=== PATIENT | male | born 1995 | race Caucasian/White ===

== ENCOUNTER 2020-05-25 11:36 | Emergency (ER) | payer OTHER, SELFPAY ==
[2020-05-25] VITALS (22 sets, daily range): BP systolic 108–136; BP diastolic 61–70; PULSE 54–96; RESP 15–24; TEMP 36.3; O2SAT 97–100
--- NOTE | ~2020-05-25 | XR_ITS ---
XR chest 1V portable DATE: 05/25/2020 11:57 INDICATION: Syncope TECHNIQUE: Portable upright AP views on 05/17/2020 1157 hours COMPARISON: None FINDINGS: Normal heart size. No hilar or mediastinal enlargement. The lungs are clear of infiltrate o r consolidation. No pleural effusion or pulmonary vascular congestion or pneumothorax. Included skeletal structures are unremarkable IMPRESSION: No active cardiopulmonary disease Reviewed, dictated and finalized at location A. DE ACCOUNT EXECUTIVE
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
--- NOTE | ~2020-05-25 | CT_ITS ---
EXAMINATION: CTA brain carotid DATE: 05/25/2020 13:23 INDICATION: Cerebrovascular accident. TECHNIQUE: Computed tomographic angiography (CTA) of the head was performed with 100 mL Omnipaque-350 intravenous contrast. CTA of the neck was performed with intravenous contrast. Automated exposure co ntrol and iterative reconstruction technique were employed. The dose-length product was 1241.54 mGy-c m. Maximum intensity projection and volume rendered 3D-reconstructions were created by the technologi st on a separate workstation. COMPARISON: Head CT 05/25/2020 FINDINGS: HEAD CTA: There is acute subarachnoid hemorrhage in sulci of the anterior-inferior frontal lobes and in the suprasellar cistern and anterior interhemispheric fissure. There is no acute ischemic or infar ct or abnormal intracranial mass lesion. The ventricles are normal in size. The paranasal sinuses are clear. The mastoid air cells are normal. The orbits are normal. The vertebral arteries are codominan t. There is no significant stenosis of basilar artery or the posterior cerebral arteries. The posteri or communicating arteries are normal. There is no significant stenosis of the anterior or middle cere bral arteries. Anterior communicating artery is normal. There is no aneurysm. NECK CTA: There are no pathologically enlarged lymph nodes. There is no visible plaque in the proxima l internal carotid arteries. There is 0% stenosis of the proximal right internal carotid artery relat feliz to normal distal artery lumen diameter (NASCET criteria). There is 0% stenosis of the proximal le ft internal carotid artery relative to normal distal artery lumen diameter. There is no significant s tenosis of the vertebral arteries. There are nodules in the thyroid measuring up to 5 mm, likely not clinically significant. There is mild cervical spondylosis. IMPRESSION: 1. Acute subarachnoid hemorrhage in the suprasellar cistern, anterior interhemispheric fissure, and i n the anteroinferior frontal lobe sulci. 2. No aneurysm identified. 3. 0% stenosis of the proximal internal carotid arteries relative to normal distal artery lumen diame ters (NASCET criteria). Reviewed, dictated and finalized at location E. [employer] IMPRESSION: 1. Acute subarachnoid hemorrhage in the suprasellar cistern, anterior interhemi spheric fissure, and in the anteroinferior frontal lobe sulci. 2. No aneurysm identified. 3. 0% stenosis of the proximal internal carotid arteries relative to normal dis daniel artery lumen diameters (NASCET criteria).
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
--- NOTE | 2020-05-25 11:41 | ECG_ITS ---
Measurements Intervals [place] Rate: 79 P: 72 VT: 140 QRS: 74 QRSD: 105 T: 58 QT: 382 QTc: 438 Interpretive Statements SINUS RHYTHM NORMAL ECG Electronically Signed On 05-25-2020 16:25:09 NURSERY HAND by Elier Jones D.O.
[2020-05-25 11:58] LABS: Basophils Absolute Auto 0.1 K/mm3 (0.0-0.1); Basophils Percent Auto 0.9 % (0.2-1.2); Eosinophils Absolute Auto 0.3 K/mm3 (0-0.3); Eosinophils Percent Auto 2.9 % (0-4.4); Hematocrit 42.3 % (42.0-52.0); Hemoglobin 14.7 g/dL (14.0-18.0); Immature Granulocyte Absolute 0.03 K/mm3 (0.00-0.031); Immature Granulocyte Percent A 0.3 % (0-0.5); Lymphocytes Absolute Auto 4.03 K/mm3 (0.9-3.2); Lymphocytes Percent Auto 45.5 % (18.3-44.2); Mean Corpuscular HGB Conc 34.8 g/dl (32-36); Mean Corpuscular Hemoglobin 30.3 pg (26-34); Mean Corpuscular Volume 87.2 fl (80-100); Mean Platelet Volume 10.6 fl (7.4-10.4); Monocytes Absolute Auto 0.8 K/mm3 (0.1-0.6); Neutrophils Absolute Auto 3.7 K/mm3 (1.3-6.7); Neutrophils Percent Auto 41.4 % (45.5-73.1); Platelet Count Result 248 k/mm3 (150-375); Red Blood Count 4.85 M/mm3 (4.6-6.20); Red Cell Distribution Width 12.7 % (11.5-14.5); White Blood Count 8.9 K/mm3 (4.5-10.0)
[2020-05-25 12:08] LABS: Prothrombin Time 13.7 Seconds (11.1-14.7)
[2020-05-25 12:09] LABS: Partial Thromboplastin Time 21.3 SECONDS (22.3-36.8)
[2020-05-25 12:10] LABS: Ethanol < 10 mg/dL (<10)
[2020-05-25 12:11] LABS: Alanine Aminotransferase 19 U/L (4-50); Albumin Level 4.5 g/dL (3.5-5.1); Alkaline Phosphatase 41 U/L (38-126); Anion Gap 10 mmol/L (8-16); Aspartate Amino Transferase 21 U/L (17-59); Bilirubin,Total 0.7 mg/dL (0.2-1.3); Blood Urea Nitrogen 11 mg/dL (9-20); Calcium 9.2 mg/dL (8.4-10.2); Carbon Dioxide 27 mmol/L (22-30); Chloride 100 mmol/L (98-107); Creatine Kinase 113 U/L (55-170); Estimated CRCL calculation 151 ml/min; Estimated Glomerular Filt Rate > 60; Glucose 175 mg/dL (75-110); Phosphorus 2.6 mg/dL (2.5-4.5); Potassium 3.3 mmol/L (3.4-5.0); Sodium 137 mmol/L (137-145)
--- NOTE | 2020-05-25 12:11 | PC.NURSE ---
Pt in CT.
[2020-05-25] MEDS: SODIUM CHLORIDE 0.9% IV 1,000 ML 999 ML IV CONT (12:17)
[2020-05-25] MEDS: levETIRAcetam 1000MG/NACL100ML 1,000 MG/100 ML BAG 400 MG IVPB (12:57)
--- NOTE | 2020-05-25 13:05 | PC.NURSE ---
Flight crew at bedside awaiting acceptance for transfer. Pt remains A&O x4 with clear speech. VSS.
--- NOTE | 2020-05-25 13:11 | PC.NURSE ---
[facility] requesting stat CTA resulted prior to acceptance. Pt to CT.
--- NOTE | 2020-05-25 13:12 | ED.GENADULT ---
HPI - General Adult General Chief complaint: Seizure Stated complaint: syncope Time Seen by Provider: 05/25/20 11:40 Source: patient, family and EMS Mode of arrival: EMS Limitations: no limitations History of Present Illness HPI narrative: Patient is a 25-year-old male who presents per EMS after having syncopal episode at work followed by seizure-like activity patient was postictal after which brought in by EMS after which she presents with a GCS of 15 and is alert and oriented x3. Patient notes minimal headache and heaviness of the head. Patient was fine yesterday notes he has had no recent illness or similar occurrence. Patient did have an episode of emesis per EMS but denies nausea on arrival. Patient denies any pain in the extremities. Patient's mother presents and notes that he has no past medical history. Patient denies any alcohol drug abuse. Patient on arrival GCS of 15 resting comfortably in the room as noted Related Data Home Medications Medication Instructions Recorded Confirmed No Home Medications 05/25/20 05/25/20 Allergies Allergy/AdvReac Type Severity Reaction Status Date / Time No Known Allergies Allergy Verified 05/25/20 11:44 Review of Systems Review of Systems: All systems reviewed & are unremarkable except as noted in HPI and below PMFSH Social History Social History (Updated 05/25/20 @ 13:24 by Brandyn Vázquez PA-C) Tobacco type: e-cigarettes/vaping Alcohol intake: unknown Substance use type: marijuana Living arrangements: with family Occupation/Education: occupation Gender identity (if verbalized by the patient): Male Exam Narrative: Exam Narrative: GENERAL: Well-appearing, well-nourished, and in no acute distress. HEAD: Normocephalic, atraumatic. EYES: PERRLA and EOMI. ENT: Nares clear, no rhinorrhea or epistaxis. Mucous membranes moist. NECK: Supple. No adenopathy or masses. CHEST: Clear to auscultation. No respiratory distress. No wheezes rales or rhonchi HEART: Regular rate and rhythm. No murmur heard. Normal peripheral pulses. ABDOMEN: Soft, nontender, nondistended EXTREMITIES: Normal range of motion. No edema. No cervical thoracic or lumbar tenderness SKIN: Warm, dry, no rash. NEURO: No focal deficits. Alert and oriented x3. Cranial nerves II through XII grossly intact. GCS 15. Normal speech. Cerebellar intact. Motor and sensory intact and symmetrical in the extremities PSYCH: Normal mood and affect. Course Course Emergency Course: Patient currently stable in the room aware of case findings treatment plan diagnosis agreeing to be transferred to [facility] is aware of the recommendations and discussion with neurosurgery. Patient's mother is also present aware of these findings. Patient alert oriented x3. Reevaluation(s) Reevaluation #1: Patient in the room at this time aware of case findings treatment plan diagnosis resting comfortably hemodynamically stable GCS of 15 ABCs stable Date: 05/25/20 Time: 13:50 Consultations Consultation #1: ISELA BUTCHER Neurosurgery at [place] discussed the case with who is reviewed the imaging would like CTA nimodipine and Keppra to be given. Date: 05/25/20 Time: 13:26 Consultation #2: spoke with ISELA BUTCHER neurosurgery at [facility] reviewed the CTA imaging and has accepted the patient patient has a bed at this time and will be transferred Date: 05/25/20 Time: 13:50 Vital Signs Vital signs: Vital Signs Temperature 97.3 F L 05/25/20 11:37 Pulse Rate 81 05/25/20 11:37 Respiratory Rate 18 05/25/20 11:37 Blood Pressure 135/64 05/25/20 11:37 Pulse Oximetry 99 05/25/20 11:37 Temperature 97.3 F L 05/25/20 11:37 Pulse Rate 67 05/25/20 13:32 Respiratory Rate 20 05/25/20 13:32 Blood Pressure 117/62 05/25/20 13:32 Pulse Oximetry 100 05/25/20 13:27 Medical Decision Making [facility] Narrative Medical decision making narrative: Patient with referred aneurysm as the etiology of his symptoms patient was giv
--- NOTE | 2020-05-25 13:28 | PC.NURSE ---
[facility] at bedside awaiting acceptance for transfer.
== END 2020-05-25 13:57 | disposition short-term general hospital (02) ==
PROVIDERS: Emergency Medicine Emergency Medical Services; Emergency Provider Emergency Medicine
DX: I60.7 Nontraumatic subarachnoid hemorrhage from unspecified intracranial artery (principal); R56.9 Unspecified convulsions; R55 Syncope and collapse; F17.290 Nicotine dependence, other tobacco product, uncomplicated
CPT/HCPCS: 36415; 70450; 70496; 70498; 71045; 72125; 80053; 80307; 82550; 83735; 84100; 85025; 85610; 85730; 93005; 96365; 96375; 99291; A9270; J0131; J1953; J7030; Q9967